=== PATIENT | female | born 1950 | race Hispanic/Latino ===

== ENCOUNTER 2017-02-11 10:50 | Outpatient (CLI) | payer OTHER ==
--- NOTE | 2017-02-11 11:30 | XRay Report ---
CHEST 2 VIEWS INDICATION: Cough. Right rotator cuff surgery. COMPARISON: None similar. FINDINGS: PA and lateral chest radiographs demonstrate top normal heart size. Slight left midlung horizontal atelectasis or scarring. Lungs otherwise clear without pleural effusions or CHF. Right shoulder postsurgical changes. Osteopenia and mild thoracic spine degenerative changes as well. CONCLUSION: No acute chest process, as described. Thank you for the opportunity to participate in this patient's care.
== END 2017-02-11 10:51 | disposition home or self-care (01) ==
LOC: SPVIMAG 10:50
PROVIDERS: ATTEND Internal Medicine
DX: R05 Cough (principal); M47.894 Other spondylosis, thoracic region; M85.88 Other specified disorders of bone density and structure, other site
CPT/HCPCS: 71020